=== PATIENT | female | born 1970 | race Caucasian/White ===

== ENCOUNTER 2017-09-10 19:05 | Emergency (ER) | payer OTHER ==
[~2017-09-10] VITALS: Ht 170.2 cm; Wt 82.5 kg
[2017-09-10] MEDS ORDERED: PROPARACAINE OPHTH 0.5%, 15ML LEFTEYE ONE (20:00)
[2017-09-10] MEDS ORDERED: FLUORESCEIN OPHTHALMIC 1 MG STRIP OP ONE (20:00)
[2017-09-10 21:37] LABS: CULTURE INDICATED? YES; MICROSCOPIC INDICATED
[2017-09-10] MEDS ORDERED: PROPARACAINE OPHTH 0.5%, 15ML ONE (21:47)
[2017-09-10] MEDS ORDERED: FLUORESCEIN OPHTHALMIC 1 MG STRIP ONE (21:47)
[2017-09-10 22:11] VITALS: BP 114/78
== END 2017-09-10 22:28 | disposition home or self-care (01) ==
LOC: ED 21:34
DX: H10.022 Other mucopurulent conjunctivitis, left eye (principal); N30.00 Acute cystitis without hematuria; Z90.49 Acquired absence of other specified parts of digestive tract; Z90.710 Acquired absence of both cervix and uterus; M32.9 Systemic lupus erythematosus, unspecified; Z87.442 Personal history of urinary calculi
CPT/HCPCS: 81001; 87077; 87086; 87186; 99284